=== PATIENT | female | born 1960 | race American Indian/Alaskan Native ===

== ENCOUNTER 2018-07-30 21:09 | Emergency (ER) | payer BC ==
[2018-07-30 21:18] VITALS: BP 178/75; PULSE 83; RESP 18; TEMP 98.3; O2SAT 98
--- NOTE | 2018-07-30 22:43 | C.PDOC ---
History Of Present Illness 58 year old female presents to the ED c/o left upper extremity pain. Patient reports that today she slipped and fell, landing on her left side. Patient mainly c/o left forearm pain that worsens with movement. Patient denies fever, chills, headache, LOC, visual changes, neck pain, nausea, vomit, dizziness, weakness, numbness. Time Seen by Provider: 07/30/18 21:43 Chief Complaint (Nursing): Upper Extremity Problem/Injury History Per: Patient History/Exam Limitations: no limitations Onset/Duration Of Symptoms: Hrs Current Symptoms Are (Timing): Still Present Quality: "Pain" Exacerbating Factor(s): Movement Recent travel outside of the [place]: No Additional History Per: Patient Past Medical History Reviewed: Historical Data, Nursing Documentation, Vital Signs Vital Signs: Last Vital Signs Temp 98.3 F 07/30/18 21:14 Pulse 83 07/30/18 21:14 Resp 18 07/30/18 21:14 BP 178/75 H 07/30/18 21:14 Pulse Ox 98 07/30/18 21:14 Primary Care Provider: Benjamin Sotomayor - Medical History PMH: Asthma, Bronchitis, Gastritis, HTN, Hyperthyroidism Denies: Chronic Kidney Disease Surgical History: Cholecystectomy Family History: States: Unknown Family Hx - Social History Hx Alcohol Use: No Hx Substance Use: No - Immunization History Hx Tetanus Toxoid Vaccination: No Hx Influenza Vaccination: Yes Hx Pneumococcal Vaccination: No Review Of Systems Constitutional: Negative for: Fever, Chills Eyes: Negative for: Vision Change Respiratory: Negative for: Cough, Shortness of Breath Gastrointestinal: Negative for: Nausea, Vomiting Musculoskeletal: Positive for: Arm Pain. Negative for: Shoulder Pain, Leg Pain, Foot Pain Skin: Negative for: Rash Neurological: Negative for: Weakness, Numbness, Headache, Dizziness Physical Exam - Physical Exam Appears: Non-toxic, No Acute Distress Skin: Normal Color, Warm, Dry, No Rash Head: Atraumatic, Normacephalic Eye(s): bilateral: Normal Inspection, PERRL, EOMI Oral Mucosa: Moist Neck: Normal ROM, No Midline Cervical Tenderness, Supple Back: No Vertebral Tenderness Extremity: No Normal ROM (limited left wrist due to pain. Remainder of finger and upper arm normal), Tenderness (dorsal radial left wrist ), Capillary Refill (< 2 seconds), No Deformity, Swelling (dorsal radial left wrist) Pulses: Left Radial: Normal, Right Radial: Normal Neurological/Psych: Oriented x3, Normal Speech, Normal Cognition Gait: Steady ED Course And Treatment O2 Sat by Pulse Oximetry: 98 (ON RA) Pulse Ox Interpretation: Normal - Other Rad Left wrist X-Ray X-Ray: Interpreted by Me, Viewed By Me Interpretation: No fracture or dislocation Progress Note: Plan: - Motrin 800 mg PO. - Left wrist X-Ray. Patient's imaging results were discussed with her. Patient was placed on a wrist splint for support and advised to take NSAIDs for pain. Patient advised to follow up with PMD. Disposition Counseled Patient/Family Regarding: Diagnosis - Disposition Referrals: Benjamin Sotomayor MD [Non-Staff] - Disposition: HOME/ ROUTINE Disposition Time: 22:52 Condition: STABLE Additional Instructions: Please follow up with PMD Take medications as directed Keep splint for support Return to ER if worse Prescriptions: Ibuprofen [Motrin] 600 mg PO Q6H #30 tab Instructions: Wrist Sprain (DC) Forms: [email or web address] ([place]) - Clinical Impression Clinical Impression: Sprain of wrist, left - PA / CIV[employer]IAN [employer] OFFICER / Resident Statement MD/DO has reviewed & agrees with the documentation as recorded. - Scribe Statement The provider has reviewed the documentation as recorded by the Scribe Armando Aguirre All medical record entries made by the Scribe were at my direction and personally dictated by me. I have reviewed the chart and agree that the record a ccurately reflects my personal performance of the history, physical exam, medical decision making, and the department course for this patient. I have also personally directed, reviewed, and agree with the discharge instructions and disposition.
--- NOTE | 2018-07-31 09:26 | RAD ---
PROCEDURE: Left Wrist Radiographs. 4 views. HISTORY: pain, fall COMPARISON: None available. FINDINGS: BONES: No acute displaced fracture. JOINTS: No dislocation. SOFT TISSUES: Soft tissue swelling. No evidence of radiopaque foreign body OTHER FINDINGS: None. IMPRESSION: Soft tissue swelling. No acute displaced fracture, dislocation, or significant joint effusion identified. If symptoms persist, or if there is continued clinical concern, x-ray follow-up in 7-10 days should be considered.
== END 2018-07-30 23:05 | disposition home or self-care (01) ==
LOC: C.ER 21:09
DX: S63.502A Unspecified sprain of left wrist, initial encounter (principal); W01.0XXA Fall on same level from slipping, tripping and stumbling without subsequent striking against object, initial encounter